=== PATIENT | female | born 1950 | race Two or more races ===

== ENCOUNTER 2020-07-28 06:55 | Day surgery (SDC) | payer OTHER | END 2020-07-28 11:53 | disposition home or self-care (01) | LOC: AMB-ENDOS 06:55 → EDBD 14:00 | PROVIDERS: ATTEND Surgery | DX: D12.3 Benign neoplasm of transverse colon (principal); K62.1 Rectal polyp; K64.0 First degree hemorrhoids; Z20.828 Contact with and (suspected) exposure to other viral communicable diseases ==